=== PATIENT | male | born 1990 | race Caucasian/White ===

== ENCOUNTER 2017-02-28 19:03 | Emergency (ER) | payer OTHER ==
[~2017-02-28] VITALS: Ht 172.7 cm; Wt 72.2 kg
[2017-02-28] MEDS ORDERED: CIPRODEX OTIC SUSP 7.5ML AD STA (20:07)
[2017-02-28 20:11] VITALS: BP 138/78
== END 2017-02-28 20:28 | disposition home or self-care (01) ==
LOC: M ED 19:53
DX: H60.91 Unspecified otitis externa, right ear (principal); H61.23 Impacted cerumen, bilateral; F17.200 Nicotine dependence, unspecified, uncomplicated

== ENCOUNTER 2019-07-29 10:52 | Emergency (ER) | payer OTHER ==
[~2019-07-29] VITALS: Ht 172.7 cm; Wt 70.5 kg
[2019-07-29] MEDS ORDERED: HM I1TAB PO (10:56)
[2019-07-29] MEDS ORDERED: SM I PO (10:56)
[2019-07-29 12:30] LABS: INFLUENZA A AMPLIFICATION NEGATIVE (NEGATIVE); INFLUENZA B AMPLIFICATION NEGATIVE (NEGATIVE)
[2019-07-29] MEDS ORDERED: NS 1,000 ML IV ONE ×2 (12:45→14:00)
[2019-07-29 13:03] LABS: BASO # 0.1 10^3/uL (0.0-0.2); BASO % 0.8 % (0.0-1.0); EOS # 0.1 10^3/uL (0.0-0.5); HEMOGLOBIN 15.9 g/dl (13.5-17.5); LYMPH # 1.6 10^3/uL (1.5-5.0); LYMPH % 24.8 % (24.0-44.0); MEAN CORPUSCULAR HEMOGLOBIN 29.8 pg (27.0-33.0); MEAN CORPUSCULAR HGB CONC 33.1 g/dl (32.0-36.5); MEAN CORPUSCULAR VOLUME 90.1 fl (80.0-96.0); MONO # 0.6 10^3/uL (0.0-0.8); MONO % 9.2 % (0.0-5.0); PLATELET COUNT, AUTOMATED 157 10^3/uL (150-450); RED BLOOD COUNT 5.33 10^6/uL (4.30-6.10); WHITE BLOOD COUNT 6.4 10^3/uL (4.0-10.0)
--- NOTE | 2019-07-29 13:06 | REP ---
Two-view chest: 07/29/2019. Indication: Cough and fever. Comparison: None. Findings: The lungs are clear. There is no pleural effusion or pneumothorax. The cardiomediastinal silhouette is unremarkable. Impression: No acute cardiopulmonary process. Electronically Signed by Blaise Albarado DO 07/29/2019 12:57 P
[2019-07-29 13:30] LABS: MONO SCRN NEGATIVE (NEGATIVE)
[2019-07-29 13:32] LABS: ALBUMIN 4.2 GM/DL (3.2-5.2); ALT/SGPT 30 U/L (12-78); AMYLASE 61 U/L (25-115); BILIRUBIN,TOTAL 0.4 MG/DL (0.2-1.0); BLOOD UREA NITROGEN 14 MG/DL (7-18); CALCIUM LEVEL 9.2 MG/DL (8.5-10.1); CARBON DIOXIDE LEVEL 30 MEQ/L (21-32); CHLORIDE LEVEL 107 MEQ/L (98-107); CREATININE FOR GFR 1.27 MG/DL (0.70-1.30); GLOMERULAR FILTRATION RATE > 60.0 (>60); GLUCOSE, FASTING 93 MG/DL (70-100); LIPASE 85 U/L (73-393); POTASSIUM SERUM 4.3 MEQ/L (3.5-5.1); SODIUM LEVEL 141 MEQ/L (136-145); TOTAL PROTEIN 6.9 GM/DL (6.4-8.2)
[2019-07-29] MEDS ORDERED: METOCLOPRAMIDE INJ 10MG/2ML VIAL (J2765) IV ONE (14:00)
[2019-07-29] MEDS ORDERED: KETOROLAC 30 MG/ML VIAL (J1885) IV ONE (14:00)
[2019-07-29] MEDS ORDERED: ONDANSETRON 4MG/2ML VIAL (J2405) IV ONE (14:00)
[2019-07-29] MEDS ORDERED: ISOVUE-370 76% 100ML VIAL (Q9967) As Ordered ONE (14:06)
[2019-07-29] MEDS ORDERED: PENI500T PO (16:10)
[2019-07-29 16:25] VITALS: BP 133/70
--- NOTE | 2019-07-29 17:46 | REP ---
CT ABDOMEN AND PELVIS WITH IV CONTRAST: TECHNIQUE: Axial contrast enhanced images from the lung bases to the pubic symphysis using 100 mL Isovue 370 intravenous contrast material with multiplanar reformations. Visualized lung bases are clear. The liver and spleen are mildly enlarged, length of the liver is approximately 18.1 cm and spleen 14.3 cm. No liver mass is seen. The gallbladder is grossly unremarkable. The adrenals, pancreas and kidneys are unremarkable. There is no hydronephrosis bilaterally. There is no abdominal aortic aneurysm. I see no adenopathy. There is no free air. No bowel wall thickening is seen. The appendix is normal. There is trace free fluid in the pelvis which is of doubtful significance. Urinary bladder is mildly distended and grossly unremarkable. IMPRESSION :No evidence of appendicitis. No bowel wall thickening or free air. No obstruction. Trace free fluid in the pelvis is of doubtful significance. There is mild hepatosplenomegaly. Electronically Signed by Matheus Pitts MD 07/30/2019 05:01 P
== END 2019-07-29 16:30 | disposition home or self-care (01) ==
LOC: M ED 10:52
DX: J02.0 Streptococcal pharyngitis (principal); B34.9 Viral infection, unspecified; E86.0 Dehydration; R16.2 Hepatomegaly with splenomegaly, not elsewhere classified; F17.218 Nicotine dependence, cigarettes, with other nicotine-induced disorders
CPT/HCPCS: 71046; 74177; 80053; 82150; 83690; 85025; 86308; 87502; 87798; 87880; 96374; 96375; 96376; 99284; J1885; J2765; Q9967